=== PATIENT | female | born 1960 | race Caucasian/White ===

== ENCOUNTER 2023-06-09 09:54 | Emergency (ER) | payer OTHER ==
[~2023-06-09] VITALS: Ht 167.6 cm; Wt 90.9 kg
[2023-06-09] MEDS: ONDANSETRON HCL 4 MG/2 ML VIAL IV ONE (11:45)
[2023-06-09] MEDS: KETOROLAC TROMETH 30 MG/ML 1ML VIAL IV ONE (11:45)
[2023-06-09] MEDS: CEFTRIAXONE SODIUM 2 GM in D5W 5% 100 ML IV ONE (11:45)
[2023-06-09] MEDS: TETANUS-DIPTH-ACEL PERTUSSIS 0.5ML SYR Tdap IM ONE (13:19)
[2023-06-09] MEDS: NEOMYCIN-BACITRACIN-POLYM UNITDOSE PKG TOP OINT TOP ONE (13:19)
[2023-06-09 15:08] VITALS: BP 140/74; PULSE 70; RESP 18; TEMP 98.2; O2SAT 96
== END 2023-06-09 15:24 ==
LOC: ER 09:54
DX: S68.111A Complete traumatic metacarpophalangeal amputation of left index finger, initial encounter (principal); I10 Essential (primary) hypertension; E11.9 Type 2 diabetes mellitus without complications; Z88.8 Allergy status to other drugs, medicaments and biological substances; W22.8XXA Striking against or struck by other objects, initial encounter; Y93.89 Activity, other specified; Y92.89 Other specified places as the place of occurrence of the external cause; Y99.8 Other external cause status
CPT/HCPCS: 73130; 90471; 90715; 99285; J0696; J7060; J2405